=== PATIENT | male | born 1950 | race Caucasian/White ===

== ENCOUNTER 2017-12-06 09:55 | Observation (INO) | payer OTHER, MEDICARE ==
[2017-12-06] VITALS (8 sets, daily range): BP systolic 86–132; BP diastolic 53–73; PULSE 53–80; RESP 18–20; TEMP 98.4–98.5; O2SAT 95–100
[~2017-12-06] VITALS: Ht 188 cm; Wt 115.0 kg
--- NOTE | 2017-12-06 10:33 | RADRPT ---
EXAM DATE/TIME: 12/06/2017 10:17 [place] COMPARISON: No previous studies available for comparison. INDICATIONS : Chest pain MEDICAL HISTORY : Chronic obstructive pulmonary disease. SURGICAL HISTORY : Pacemaker. ENCOUNTER: Initial ACUITY: 1 day PAIN SCORE: 5/10 LOCATION: chest FINDINGS: PA and lateral views of the chest demonstrate the lungs to be symmetrically aerated without evidence of mass, infiltrate or effusion. The cardiomediastinal contours are unremarkable. Osseous structure s are intact. Pacemaker over left chest. No pneumothorax. CONCLUSION: No acute disease. Mega Moy MD on December 06, 2017 at 10:31 Board Certified Radiologist. This report was verified electronically.
[2017-12-06 11:50] LABS: AUTOMATED NEUTROPHIL # 7.2 TH/MM3 (1.8-7.7); BASOPHIL % 0.5 % (0.0-2.0); EOSINOPHIL # 0.2 TH/MM3 (0-0.4); EOSINOPHIL % 2.4 % (0.0-4.0); HEMATOCRIT 44.5 % (39.0-51.0); HEMOGLOBIN 15.1 GM/DL (13.0-17.0); LYMPH % 13.9 % (9.0-44.0); LYMPHOCYTE # 1.3 TH/MM3 (1.0-4.8); MEAN CELL VOLUME 89.4 FL (80.0-100.0); MEAN CORPUSCULAR HEMOGLOBIN 30.3 PG (27.0-34.0); MEAN CORPUSCULAR HGB CONC 33.9 % (32.0-36.0); MEAN PLATELET VOLUME 8.2 FL (7.0-11.0); MONO % 8.4 % (0.0-8.0); MONOCYTE # 0.8 TH/MM3 (0-0.9); NEUT % 74.8 % (16.0-70.0); PLATELET COUNT 238 TH/MM3 (150-450); RED BLOOD COUNT 4.98 MIL/MM3 (4.50-5.90); RED CELL DISTRIBUTION WIDTH 13.5 % (11.6-17.2); WHITE BLOOD COUNT 9.7 TH/MM3 (4.0-11.0)
[2017-12-06 11:56] LABS: INTERNATIONAL NORMALIZED RATIO 1.2 RATIO; PROTHROMBIN TIME - PATIENT 12.1 SEC (9.8-11.6)
[2017-12-06 12:11] LABS: BICARBONATE 26.9 MEQ/L (21.0-32.0); BLOOD UREA NITROGEN 20 MG/DL (7-18); CALCIUM 8.7 MG/DL (8.5-10.1); CHLORIDE 106 MEQ/L (98-107); CREATININE 1.02 MG/DL (0.60-1.30); GLOMERULAR FILTRATION RATE 73 ML/MIN (>89); GLUCOSE,RANDOM 107 MG/DL (74-106); SODIUM (NA) 139 MEQ/L (136-145)
[2017-12-06 12:15] LABS: TROPONIN I LESS THAN 0.02 NG/ML (0.02-0.05)
[2017-12-06] MEDS ORDERED: NITROGLYCERIN 0.4 MG SL 25 TABS/BTL SL ONE (14:45)
[2017-12-06] MEDS ORDERED: FAMOTIDINE 20 MG/2 ML VIAL IV PUSH SCH (14:45)
[2017-12-06] MEDS ORDERED: NITR0.4S SL (14:51)
[2017-12-06] MEDS ORDERED: PRAD150C PO (14:51)
[2017-12-06] MEDS ORDERED: ISOS30TA3 PO (14:51)
[2017-12-06] MEDS ORDERED: METO1TAB42 PO (14:51)
[2017-12-06] MEDS ORDERED: POTA10CA PO (14:51)
[2017-12-06] MEDS ORDERED: CETI10CH CHEW (14:51)
[2017-12-06] MEDS ORDERED: PRAV10TA PO (14:51)
[2017-12-06] MEDS ORDERED: AMIT8CAP6 PO (14:51)
[2017-12-06] MEDS ORDERED: ASPI81TA23 PO (14:51)
[2017-12-06] MEDS ORDERED: UBID10CA PO (14:51)
[2017-12-06] MEDS ORDERED: BUME1TAB PO (14:51)
[2017-12-06] MEDS ORDERED: SERT-129 PO (14:51)
[2017-12-06] MEDS ORDERED: RAMI5CAP PO (14:51)
[2017-12-06] MEDS ORDERED: OXYC1TAB63 PO (14:51)
--- NOTE | 2017-12-06 14:55 | PD ---
HPI Chief Complaint: Chest Pain Time Seen by Provider: 14:24 Travel History International Travel<30 days: No Contact w/Intl Traveler<30days: No Traveled to known affect area: No History of Present Illness HPI 67-year-old male that presents to the ED for evaluation of chest pain. Patient has had this for 3 days. The patient comes and goes. Per patient he has a significant history of atrial fibrillation, the fibrillator placed as well as stents in the past. Per patient he follows with jewelry inspector in the [place] as well as a jewelry inspector in [facility]. Per patient he has not seen his jewelry inspector since having his defibrillator. Most of his care now through the [place]. Per patient is been having this chest pain for 3 days. Does not get worse with anything. Per patient feels more like gas and like a burning sensation. Mainly to the mid epigastric area. Does not radiate. He has been taking some "pain killers "for some left arm pain that he has had that he attributes to osteoarthritis. Per patient he went to the [place] today and the told to come here to get evaluated. He did took an aspirin today. He does take nitroglycerin. Per patient given the painkillers have not help with his discomfort. Per patient the pain just comes on its own. She does have a history of old smoking as well as high cholesterol and hypertension. She does take blood thinners. He tells me that he has been more than 6 months since his last stress test or cardiac eval. PFSH Past Medical History Arthritis: Yes Atrial Fibrillation: Yes Depression: Yes Heart Rhythm Problems: Yes High Cholesterol: Yes Musculoskeletal: Yes (CHRONIC BACK PAIN ) Integumentary: Yes (DERMATOGRAPHISM ) Myocardial Infarction: Yes Tetanus Vaccination: < 5 Years Influenza Vaccination: Yes Past Surgical History Cholecystectomy: Yes Pacemaker: Yes Other Surgery: Yes (AICD, PACEMAKER ) Social History Alcohol Use: Yes Tobacco Use: No Substance Use: No Allergies-Medications (Allergen,Severity, Reaction): Coded Allergies: No Known Allergies (Unverified , 12/06/17) Review of Systems Except as stated in HPI: all other systems reviewed are Neg Physical Exam Narrative GENERAL: SKIN: Warm and dry. HEAD: Atraumatic. Normocephalic. EYES: Pupils equal and round. No scleral icterus. No injection or drainage. ENT: No nasal bleeding or discharge. Mucous membranes pink and moist. Tongue is midline. No uvula deviation. NECK: Trachea midline. No JVD. CARDIOVASCULAR: Regular rate and rhythm. No murmurs, S3, S4. RESPIRATORY: No accessory muscle use. Clear to auscultation. Breath sounds equal bilaterally. GASTROINTESTINAL: Abdomen soft, non-tender, nondistended. Hepatic and splenic margins not palpable. MUSCULOSKELETAL: Extremities without clubbing, cyanosis, or edema. No obvious deformities. Full range of motion of the upper and lower extremities bilaterally. 2+ pulses bilaterally. NEUROLOGICAL: Awake and alert. No obvious cranial nerve deficits. Motor grossly within normal limits. Five out of 5 muscle strength in the arms and legs. Normal speech. PSYCHIATRIC: Appropriate mood and affect; insight and judgment normal. Data Data Last Documented VS Vital Signs Date Time Temp Pulse Resp B/P (MAP) Pulse Ox O2 Delivery O2 Flow Rate FiO2 12/06/17 14:24 56 18 132/73 (92) 99 12/06/17 14:10 Room Air 12/06/17 10:00 98.5 Orders Orders Electrocardiogram (12/06/17 10:02) Complete Blood Count With Diff (12/06/17 10:02) Basic Metabolic Panel (Bmp) (12/06/17 10:02) Ckmb (Isoenzyme) Profile (12/06/17 10:02) Troponin I (12/06/17 10:02) Iv Access Insert/Monitor (12/06/17 10:02) Ecg Monitoring (12/06/17 10:02) Oxygen Administration (12/06/17 10:02) Oximetry (12/06/17 10:02) Prothrombin Time / Inr (Pt) (12/06/17 10:02) Chest, Pa & Lat (12/06/17 10:02) Nitroglycerin Sl (Nitrostat Sl) (12/06/17 14:45) Famotidine Inj (Pepcid Inj) (12/06/17 14:45) Admit Order (Ed Use Only) (12/06/17 14:39) Labs Laboratory Tests Test 12/06/17 10:45 White Blood Count 9.7 TH/MM3 Red Blood Count 4.98 MIL/MM3 Hemoglobin 15.1 GM/DL Hematocrit 44.5 % Mean Corpuscular Volume 89.4 FL Mean Corpuscular Hemoglobin 30.3 PG Mean Corpuscular Hemoglobin Concent 33.9 % Red Cell Distribution Width 13.5 % Platelet Count 238 TH/MM3 Mean Platelet Volume 8.2 FL Neutrophils (%) (Auto) 74.8 % Lymphocytes (%) (Auto) 13.9 % Monocytes (%) (Auto) 8.4 % Eosinophils (%) (Auto) 2.4 % Basophils (%) (Auto) 0.5 % Neutrophils # (Auto) 7.2 TH/MM3 Lymphocytes # (Auto) 1.3 TH/MM3 Monocytes # (Auto) 0.8 TH/MM3 Eosinophils # (Auto) 0.2 TH/MM3 Basophils # (Auto) 0.0 TH/MM3 CBC Comment DIFF FINAL Differential Comment Prothrombin Time 12.1 SEC Prothromb Time International Ratio 1.2 RATIO Blood Urea Nitrogen 20 MG/DL Creatinine 1.02 MG/DL Random Glucose 107 MG/DL Calcium Level 8.7 MG/DL Sodium Level 139 MEQ/L Potassium Level 4.2 MEQ/L Chloride Level 106 MEQ/L Carbon Dioxide Level 26.9 MEQ/L Anion Gap 6 MEQ/L Estimat Glomerular Filtration Rate 73 ML/MIN Total Creatine Kinase 66 U/L Troponin I LESS THAN 0.02 NG/ML MDM Medical Decision Making Medical Screen Exam Complete: Yes Emergency Medical Condition: Yes Medical Record Reviewed: Yes Interpretation(s) EKG shows sinus rhythm with no sign of acute ischemia remembered by me and attending. Troponin and CK-MB negative. Last Impressions Chest X-Ray 12/06/17 1002 Signed Impressions: Service Date/Time: November 10:17 - CONCLUSION: No acute disease. Mega Moy MD CBC & BMP Diagram 12/06/17 10:45 Calcium Level 8.7 Differential Diagnosis Chest pain versus atypical chest pain versus ACS versus normal exam versus peptic ulcer disease versus GERD Narrative Course 67-year-old male presents to the ED for evaluation of chest pain. Patient was properly examined and was found to have signs and symptoms consistent with appears to be chest pain. Clarity only with does appear to be a typical. Unfortunately patient does have risk factors for cardiac. [facility] Labs and imaging were done and were essentially negative here. Patient was given nitroglycerin as well as Pepcid to cover for possible GERD. Recommendation at this time is for admission for chest pain center for further eval. Patient agrees with this. My attending evaluated the patient and agrees to plan. Patient was admitted to the chest pain center. Diagnosis Primary Impression: Chest pain in adult Admitting Information Admitting Physician Requests: Observation Renny Wni Dec 06, 2017 14:55
--- NOTE | 2017-12-06 15:00 | PD ---
Physical Exam Date Seen by Provider: Dec 06, 2017 Time Seen by Provider: 14:00 Narrative I, Dr. Villasenor, have reviewed the advance practice practitioner's documentation and am in agreement, met with the patient face to face, made the diagnosis, and the medical decision making was done by me. *My assessment and Findings: Patient seen and evaluated with PA, please see PA notes for further details. He is here for epigastric and substernal pains. EKG did not show any signs of acute ST changes or dysrhythmias. Cardiac enzymes are fairly unremarkable. On exam, he has mild epigastric tenderness and cardiac and pulmonary exams were fairly unremarkable. At this point, plan would be to admit the patient for further evaluation of chest pain especially considering his cardiac history. Data Data Last Documented VS Vital Signs Date Time Temp Pulse Resp B/P (MAP) Pulse Ox O2 Delivery O2 Flow Rate FiO2 12/06/17 14:24 56 18 132/73 (92) 99 12/06/17 14:10 Room Air 12/06/17 10:00 98.5 Orders Orders Electrocardiogram (12/06/17 10:02) Complete Blood Count With Diff (12/06/17 10:02) Basic Metabolic Panel (Bmp) (12/06/17 10:02) Ckmb (Isoenzyme) Profile (12/06/17 10:02) Troponin I (12/06/17 10:02) Iv Access Insert/Monitor (12/06/17 10:02) Ecg Monitoring (12/06/17 10:02) Oxygen Administration (12/06/17 10:02) Oximetry (12/06/17 10:02) Prothrombin Time / Inr (Pt) (12/06/17 10:02) Chest, Pa & Lat (12/06/17 10:02) Nitroglycerin Sl (Nitrostat Sl) (12/06/17 14:45) Famotidine Inj (Pepcid Inj) (12/06/17 14:45) Admit Order (Ed Use Only) (12/06/17 14:39) Electrocardiogram (12/06/17 ) Labs Laboratory Tests Test 12/06/17 10:45 White Blood Count 9.7 TH/MM3 Red Blood Count 4.98 MIL/MM3 Hemoglobin 15.1 GM/DL Hematocrit 44.5 % Mean Corpuscular Volume 89.4 FL Mean Corpuscular Hemoglobin 30.3 PG Mean Corpuscular Hemoglobin Concent 33.9 % Red Cell Distribution Width 13.5 % Platelet Count 238 TH/MM3 Mean Platelet Volume 8.2 FL Neutrophils (%) (Auto) 74.8 % Lymphocytes (%) (Auto) 13.9 % Monocytes (%) (Auto) 8.4 % Eosinophils (%) (Auto) 2.4 % Basophils (%) (Auto) 0.5 % Neutrophils # (Auto) 7.2 TH/MM3 Lymphocytes # (Auto) 1.3 TH/MM3 Monocytes # (Auto) 0.8 TH/MM3 Eosinophils # (Auto) 0.2 TH/MM3 Basophils # (Auto) 0.0 TH/MM3 CBC Comment DIFF FINAL Differential Comment Prothrombin Time 12.1 SEC Prothromb Time International Ratio 1.2 RATIO Blood Urea Nitrogen 20 MG/DL Creatinine 1.02 MG/DL Random Glucose 107 MG/DL Calcium Level 8.7 MG/DL Sodium Level 139 MEQ/L Potassium Level 4.2 MEQ/L Chloride Level 106 MEQ/L Carbon Dioxide Level 26.9 MEQ/L Anion Gap 6 MEQ/L Estimat Glomerular Filtration Rate 73 ML/MIN Total Creatine Kinase 66 U/L Troponin I LESS THAN 0.02 NG/ML [facility] Medical Record Reviewed: Yes Supervised Visit with YUSUF: Yes Diagnosis Primary Impression: Chest pain in adult Admitting Information Admitting Physician Requests: Juli Farooq MD Dec 06, 2017 15:00
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
[2017-12-06] MEDS ORDERED: NITROGLYCERIN 0.4 MG SL 25 TABS/BTL SL PRN (15:30)
[2017-12-06] MEDS ORDERED: ONDANSETRON HCL 4 MG/2 ML VIAL IV PUSH PRN (15:30)
[2017-12-06] MEDS ORDERED: ACETAMINOPHEN 500 MG CPLT PO PRN (15:30)
[2017-12-06] MEDS ORDERED: SODIUM CHLORIDE 0.9% FLUSH 10 ML FLUSH IV FLUSH PRN (15:30)
[2017-12-06] MEDS ORDERED: ALUMINUM/MAGNESIUM/SIMETH 30 ML CUP PO ONE (17:00)
[2017-12-06] MEDS ORDERED: PANTOPRAZOLE SOD 40 MG DELAYED RELEASE TAB PO SCH (17:00)
[2017-12-06] MEDS ORDERED: LIDOCAINE VISCOUS 2% SOLN 15 ML UDC SWISH-SWAL ONE (17:00)
[2017-12-06 17:15] LABS: TROPONIN I LESS THAN 0.02 NG/ML (0.02-0.05)
[2017-12-06] MEDS ORDERED: oxyCODONE/ACETAMINOPHEN 5 MG/325 MG TAB PO SCH (18:00)
[2017-12-06 19:52] LABS: TROPONIN I LESS THAN 0.02 NG/ML (0.02-0.05)
[2017-12-06] MEDS ORDERED: SERTRALINE HCL 100 MG TAB PO SCH (21:00)
[2017-12-06] MEDS ORDERED: DABIGATRAN ETEXILATE 150 MG CAP PO SCH (21:00)
[2017-12-06] MEDS ORDERED: SODIUM CHLORIDE 0.9% FLUSH 10 ML FLUSH IV FLUSH SCH (21:00)
[2017-12-07 00:22] VITALS: BP 110/63; PULSE 58; RESP 20; TEMP 98.3; O2SAT 97
[2017-12-07 04:10] VITALS: BP 114/64; PULSE 55; RESP 16; TEMP 98.1; O2SAT 98
[2017-12-07 07:50] VITALS: BP 132/77; PULSE 60; RESP 14; TEMP 98; O2SAT 96
--- NOTE | 2017-12-07 08:36 | PD.AMA ---
Against Medical Advice Note Discharge Disposition: Against Medical Advice AMA Statement Patient Abdelrahman Pena has decided to leave the hospital against medical advice. This patient has the capacity to refuse care and understands the risks of leaving, including permanent disability and/or , and has had an opportunity to ask questions about his condition. The patient has been informed that he may return for care at any time, and follow up has been arranged/ advised. Srini Willoughby Dec 07, 2017 08:36
--- NOTE | 2017-12-07 08:40 | PD.CARD.PN ---
Subjective Subjective Remarks I was called in to the patients room to discuss his wishes to leave AMA. Patient prefers to follow up with his physician. It was explained to the patient that leaving AMA can lead to bad outcomes including . Patient and his understands and still chooses to leave AMA. He does not want any further examination or testing performed. Objective Medications Current Medications Medications (Trade) Dose Ordered Sig/Alvarez Route Start Time Stop Time Status Last Admin (Pepcid Inj) 10 mg ONCE IV PUSH 12/06/17 14:45 12/06/17 16:00 (NS Flush) 2 ml UNSCH PRN IV FLUSH 12/06/17 15:30 12/06/17 16:01 (NS Flush) 2 ml BID IV FLUSH 12/06/17 21:00 12/07/17 00:29 (Tylenol) 500 mg Q4H PRN PO 12/06/17 15:30 (Zofran Inj) 4 mg Q6H PRN IV PUSH 12/06/17 15:30 (Nitrostat Sl) 0.4 mg Q5M PRN SL 12/06/17 15:30 (Protonix) 40 mg DAILY PO 12/06/17 17:00 12/06/17 17:20 (Bumetanide) 1 mg DAILY PO 12/07/17 09:00 (ZyrTEC) 10 mg DAILY PO 12/07/17 09:00 (Pradaxa) 150 mg BID PO 12/06/17 21:00 12/06/17 21:00 (Imdur) 15 mg DAILY PO 12/07/17 09:00 (Toprol Xl) 25 mg DAILY PO 12/07/17 09:00 (Percocet 5-325 Mg) 1 tab TID PO 12/06/17 18:00 12/06/17 17:20 (KCl) 10 meq DAILY PO 12/07/17 09:00 (Pravachol) 10 mg DAILY PO 12/07/17 09:00 (Altace) 5 mg DAILY PO 12/07/17 09:00 (Zoloft) 100 mg HS PO 12/06/17 21:00 12/07/17 00:29 Patient Own Medication PT OWN MED: (Lubiprostone (Amitiza... DAILY PO 12/07/17 09:00 Vital Signs / I&O Vital Signs Date Time Temp Pulse Resp B/P (MAP) Pulse Ox O2 Delivery O2 Flow Rate FiO2 12/07/17 07:50 98.0 60 14 132/77 (95) 96 12/07/17 06:38 Nasal Cannula 2.00 12/07/17 04:10 98.1 55 16 114/64 (81) 98 12/07/17 00:22 98.3 58 20 110/63 (79) 97 12/06/17 23:00 53 12/06/17 21:18 98.4 56 20 118/61 (80) 96 12/06/17 18:20 18 12/06/17 16:58 98.4 56 18 109/69 (82) 99 12/06/17 16:09 64 86/53 (64) 12/06/17 16:03 12/06/17 16:00 59 18 93/58 (70) 95 Nasal Cannula 2.00 12/06/17 15:00 56 18 132/73 (92) 100 Nasal Cannula 2.00 12/06/17 15:00 100 Nasal Cannula 2.00 12/06/17 14:24 56 18 132/73 (92) 99 12/06/17 14:10 97 Room Air 12/06/17 10:00 98.5 80 19 115/57 (76) 95 Laboratory Laboratory Tests Test 12/06/17 10:45 12/06/17 15:00 12/06/17 18:28 White Blood Count 9.7 TH/MM3 Red Blood Count 4.98 MIL/MM3 Hemoglobin 15.1 GM/DL Hematocrit 44.5 % Mean Corpuscular Volume 89.4 FL Mean Corpuscular Hemoglobin 30.3 PG Mean Corpuscular Hemoglobin Concent 33.9 % Red Cell Distribution Width 13.5 % Platelet Count 238 TH/MM3 Mean Platelet Volume 8.2 FL Neutrophils (%) (Auto) 74.8 % Lymphocytes (%) (Auto) 13.9 % Monocytes (%) (Auto) 8.4 % Eosinophils (%) (Auto) 2.4 % Basophils (%) (Auto) 0.5 % Neutrophils # (Auto) 7.2 TH/MM3 Lymphocytes # (Auto) 1.3 TH/MM3 Monocytes # (Auto) 0.8 TH/MM3 Eosinophils # (Auto) 0.2 TH/MM3 Basophils # (Auto) 0.0 TH/MM3 CBC Comment DIFF FINAL Differential Comment Prothrombin Time 12.1 SEC Prothromb Time International Ratio 1.2 RATIO Blood Urea Nitrogen 20 MG/DL Creatinine 1.02 MG/DL Random Glucose 107 MG/DL Calcium Level 8.7 MG/DL Sodium Level 139 MEQ/L Potassium Level 4.2 MEQ/L Chloride Level 106 MEQ/L Carbon Dioxide Level 26.9 MEQ/L Anion Gap 6 MEQ/L Estimat Glomerular Filtration Rate 73 ML/MIN Total Creatine Kinase 66 U/L 60 U/L 50 U/L Troponin I LESS THAN 0.02 NG/ML LESS THAN 0.02 NG/ML LESS THAN 0.02 NG/ML Imaging Last 24 hours Impressions Chest X-Ray 12/06/17 1002 Signed Impressions: Service Date/Time: November 10:17 - CONCLUSION: No acute disease. Mega oMy MD Assessment and Plan Assessment and Plan Patient left AMA. Risks were explained to the patient. He should certainly return if he changes his mind and want s to have his chest discomfort further evaluated. Srini Willoughby Dec 07, 2017 08:40
[2017-12-07] MEDS ORDERED: BUMETANIDE 1 MG TAB PO SCH (09:00)
[2017-12-07] MEDS ORDERED: LUBIPROSTONE 8 MG PO SCH (09:00)
[2017-12-07] MEDS ORDERED: PRAVASTATIN SOD 10 MG TAB PO SCH (09:00)
[2017-12-07] MEDS ORDERED: ISOSORBIDE MONONITRATE 30 MG CR TAB (IMDUR) PO SCH (09:00)
[2017-12-07] MEDS ORDERED: RAMIPRIL 5 MG CAP PO SCH (09:00)
[2017-12-07] MEDS ORDERED: CETIRIZINE HCL 10 MG TAB PO SCH (09:00)
[2017-12-07] MEDS ORDERED: METOPROLOL SUCCINATE 25 MG EXTENDED RELEASE TAB PO SCH (09:00)
[2017-12-07] MEDS ORDERED: POTASSIUM CHLORIDE 10 MEQ CAP PO SCH (09:00)
--- NOTE | 2017-12-07 11:43 | EKG ---
Date Performed: 12/06/2017 Time Performed: 14:55:27 PTAGE: 67 years EKG: SINUS BRADYCARDIA SEPTAL MYOCARDIAL INFARCTION ABNORMAL ECG PREVIOUS TRACING : 12/06/2017 10.40 Since previous tracing, no significant change noted DOCTOR: Evans Markham Interpretating Date/Time 12/07/2017 11:41:29
--- NOTE | 2017-12-07 11:43 | EKG ---
Date Performed: 12/06/2017 Time Performed: 18:49:15 PTAGE: 67 years EKG: SINUS BRADYCARDIA SEPTAL MYOCARDIAL INFARCTION ABNORMAL ECG PREVIOUS TRACING : 12/06/2017 14.55 Since previous tracing, no significant change noted DOCTOR: Evans Markham Interpretating Date/Time 12/07/2017 11:40:31
--- NOTE | 2017-12-07 11:45 | EKG ---
Date Performed: 12/06/2017 Time Performed: 10:40:17 PTAGE: 67 years EKG: Sinus rhythm WITH SINUS ARRHYTHMIA SEPTAL MYOCARDIAL INFARCTION ABNORMAL ECG WARNING: DATA QUALITY MAY AFFECT INT ERPRETATION NO PREVIOUS TRACING DOCTOR: Evans Markham Interpretating Date/Time 12/07/2017 11:43:32
== END 2017-12-07 10:46 | disposition left against medical advice (07) ==
LOC: NEPC 09:55 → NEDA 14:41 → NEPFCDU 16:17
DX: R07.89 Other chest pain (principal); R00.1 Bradycardia, unspecified; R94.31 Abnormal electrocardiogram [ECG] [EKG]; M79.602 Pain in left arm; I25.10 Atherosclerotic heart disease of native coronary artery without angina pectoris; I11.0 Hypertensive heart disease with heart failure; I50.9 Heart failure, unspecified; E78.00 Pure hypercholesterolemia, unspecified; J44.9 Chronic obstructive pulmonary disease, unspecified; I25.2 Old myocardial infarction; K21.9 Gastro-esophageal reflux disease without esophagitis; G89.29 Other chronic pain; Z79.899 Other long term (current) drug therapy; Z79.82 Long term (current) use of aspirin; Z87.891 Personal history of nicotine dependence; F32.9 Major depressive disorder, single episode, unspecified; R29.6 Repeated falls; Z95.5 Presence of coronary angioplasty implant and graft; Z95.0 Presence of cardiac pacemaker
CPT/HCPCS: 71046; 80048; 82550; 84484; 85025; 85610; 93005; 96374; 99285; G0378